=== PATIENT | female | born 1985 | race African-American/Black ===

== ENCOUNTER 2024-04-07 09:44 | Emergency (ER) | payer OTHER, SELFPAY ==
--- NOTE | ~2024-04-07 | XR_ITS ---
XR knee LT 3V DATE: 04/07/2024 10:32 INDICATION: Injury. Anterior left knee pain. TECHNIQUE: [place], AP and lateral views COMPARISON: None FINDINGS: Mild suprapatellar knee joint effusion is suggested. Bilateral bipartite patella. There is mild periarticular spurring at the patellofemoral, medial and lateral compartments. Medial a nd lateral compartment joint spaces are relatively preserved. No fracture or dislocation, periosteal reaction or bone destruction or radiopaque intra-articular loo se body or chondrocalcinosis is noted.. IMPRESSION: Suggestion of mild suprapatellar knee joint effusion Mild tricompartment osteoarthritis Reviewed, dictated and finalized at location B.
[2024-04-07 10:03] VITALS: BP 152/110; PULSE 122; RESP 20; TEMP 36.8; O2SAT 98
[2024-04-07] MEDS: oxyCODONE/ACETAMINOPHEN (*CRX) 5-325 MG TABLET 1 TABLET PO (10:19)
--- NOTE | 2024-04-07 10:46 | ED_ITS ---
HPI - Extremity Injury (Lower) General Chief Complaint: Extremity Injury, Lower Stated Complaint: knee pain Time Seen by Provider: 04/07/24 10:14 History of Present Illness HPI Narrative: Patient presents with knee injury yesterday, she missed a step and landed hard, and now has pain to her knee. She is able to walk but it does hurt. Has been using ibuprofen. Pain sometimes radiates down her leg and sometimes she will get some tingling down her leg. Related Data Allergies Allergy/AdvReac Type Severity Reaction Status Date / Time No Known Allergies Allergy Unknown Verified 04/07/24 10:17 Review of Systems Review of Systems: All systems reviewed & are unremarkable except as noted in HPI and below Exam Narrative: EXAMINATION OF ORGAN SYSTEMS/BODY AREAS: Constitutional: Vital signs per nursing GENERAL: Appears uncomfortable HEAD: Normal with no signs of head trauma. EYES: EOMI, conjunctiva normal ENT: Hearing grossly intact LUNGS: Nonlabored breathing. HEART: Tachycardic, normal DP and popliteal pulse left lower leg ABD: [Soft], [nontender to palpation] EXT: Normal range of motion with tenderness to the anterior knee SKIN: [No rashes or lesions.] NEURO: [Alert and oriented x 3. No gross focal sensory or strength deficits.] PSYCH: Normal affect Course Vital Signs Vital signs: Vital Signs Temperature 98.3 F 04/07/24 10:03 Pulse Rate 122 H 04/07/24 10:03 Respiratory Rate 04/07/24 10:03 Blood Pressure 152/110 H 04/07/24 10:03 Pulse Oximetry 98 04/07/24 10:03 Oxygen Delivery Room Air 04/07/24 10:03 Temperature 98.3 F 04/07/24 10:03 Pulse Rate 122 H 04/07/24 10:03 Respiratory Rate 04/07/24 10:03 Blood Pressure 152/110 H 04/07/24 10:03 Pulse Oximetry 98 04/07/24 10:03 Oxygen Delivery Room Air 04/07/24 10:03 MDM - Extremity Injury (Lower) MDM Narrative Medical decision making narrative: Patient presents with left knee injury, she is neurovascularly intact, no obvious deformity, she is tender to palpation, x-ray obtained thankfully only shows an effusion without any obvious fracture on my independent interpretation, she is given pain medication, Shaw wrap, ice, crutches, and at time of discharge her heart rate had improved to 100. I do feel she is stable for discharge at this time with precautions orthopedic follow-up. Discharge Plan Discharge Clinical Impression: Knee sprain Patient Disposition: Home, Self-Care Condition: Stable Instructions: Antibiotic Form, Knee Sprain (ED) Additional Instructions: Please follow-up with the Orthopedic, your knee may need further imaging such as MRI; you can come back for any further issues. Continue using ice, Motrin and Tylenol for pain. Follow-up/Referrals: Flip Donis MD [Physician] - 2 Days PHYSICIAN,DIRECTOR BROADCAST [Primary Care Provider] -
[2024-04-07 11:01] VITALS: BP 132/100; PULSE 98; RESP 18; O2SAT 100
[2024-04-07 11:03] VITALS: BP 132/100; PULSE 97; RESP 17; O2SAT 100
== END 2024-04-07 11:06 | disposition home or self-care (01) ==
PROVIDERS: Emergency Provider Emergency Medicine
DX: S83.92XA Sprain of unspecified site of left knee, initial encounter (principal); W10.9XXA Fall (on) (from) unspecified stairs and steps, initial encounter
CPT/HCPCS: 73562; 99283; A9270

== ENCOUNTER 2024-04-30 10:14 | Outpatient (CLI) | payer OTHER, SELFPAY ==
--- NOTE | ~2024-04-30 | MR_ITS ---
MRI of the left knee Clinical history: Injury Technique: Coronal proton density and proton density-weighted images, sagittal proton-density and T2 fat-sat images, and axial proton-density fat-saturated images were acquired. Findings: Probable severe mucoid degenerative change of the ACL which is markedly hyperintense and am orphous, though suspected to be intact. Posterior cruciate ligament is intact. Medial collateral liga ment and the lateral collateral ligament complex are intact. Popliteus tendon is intact. No lateral meniscal tear seen. There is probably a free edge tear of the body segment of the medial m eniscus. There is diffuse grade IV chondromalacia of the patellar apex and lateral patellar facet. Femoral tro chlear cartilage is intact. Lateral compartment cartilage is relatively well-preserved. There is patc hy mild to moderate chondral malacia the medial compartment. There is probable mild bone contusion ve rsus reactive marrow edema at the posterolateral tibial plateau region. There is additional mild cont usion or reactive marrow edema at the posterior medial tibial plateau. Extensor mechanism is intact. Moderate joint effusion present. No Benz's cyst. Impression: Probable bone contusions at the posterior aspect of the medial and lateral tibial plateau. Mild to moderate tricompartmental degenerative change, worst in the patellofemoral compartment, as de tailed above. Probable free edge tear of the body segment of the medial meniscus. 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 Moderate joint effusion. Reviewed, dictated and finalized at [facility]. Impression: Probable bone contusions at the posterior aspect of the medial and lateral tibi al plateau. Mild to moderate tricompartmental degenerative change, worst in the patellofemo ral compartment, as detailed above. Probable free edge tear of the body segment of the medial meniscus. 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 Moderate joint effusion.
== END 2024-04-30 10:15 ==
PROVIDERS: PCP Orthopaedic Surgery; Visit Provider Orthopaedic Surgery
DX: S89.92XA Unspecified injury of left lower leg, initial encounter (principal); X58.XXXA Exposure to other specified factors, initial encounter; M25.462 Effusion, left knee
CPT/HCPCS: 73721

== ENCOUNTER 2024-09-16 02:27 | Day surgery (SDC) | payer OTHER, SELFPAY ==
--- NOTE | 2024-09-08 13:49 | SUR.PREOP ---
Report to the Outpatient Waiting Room, entrance under the green pavilion located off [facility], at time _1130_ on date _09/16/24_. Planned Procedure Time: _1330_.? Time changes happen often and if your time is changed the preop area will call you the afternoon before. - You and your visitor will be asked to self-screen and do not enter if you have any COVID symptoms. Please call surgeon if you need to reschedule. - A mask is optional within the hospital at this time. Patients may have clear liquids (water, carbonated beverages, clear teas, apple juice) until 3 hours prior to surgery with a maximum of 20 ounces. - No food from midnight until time of surgery and no smoking - Infants may have breast milk until 4 hours before surgery, infant formula 6 hours prior to surgery. - Children will be allowed to drink immediately following surgery.? If applicable, please bring a bottle or sippy cup to assist with drinking. Juice, water, soda, and popsicles are readily available.? For infants on formula, please bring formula the day of surgery.? Pacifiers are allowed. Take only the following medications with a SIP of water on the morning of surgery: _N/A_ DO NOT STOP ANY OF YOUR OTHER PRESCRIPTION MEDICATIONS PRIOR TO SURGERY EXCEPT THE FOLLOWING Medications to discontinue per physician _NSAIDs per Dr Donis_ Date to take last dose__Per Dr. Donis__ Please no make-up, nail croatian, hairspray, perfume, deodorant, or body powder the day of surgery.? No jewelry (including any body piercings) or valuables the day of surgery, leave them at home.? Please take a shower or bath the night before, or the morning of, surgery with an antibacterial soap.? Wear comfortable, loose fitting clothing.? Children are encouraged to wear pajamas. - Jewelry must be removed prior to entering the operating room.? Rings and piercings that are not removed may be cut off. - The hospital will not accept responsibility for valuables.? - Please leave all valuables, including medications, at home the day of surgery. If you are going home after surgery, a licensed flatbed driver must drive you home.? - NO public transportation without another adult if you receive anesthesia. - We recommend that an adult stay with you for 24 hours following discharge. - We also recommend that you do not drive, make important decision, drink alcoholic beverages, or take any drugs that were not prescribed by your health care provider for at least 24 hours after your discharge time. For Pediatric surgeries, we recommend two adults accompany the child home. Follow any additional instructions given to you from your surgeon. Telephone instructions given to _Angellay_and asked if any additional questions and then verbalized understanding. Patient advised to call surgeon office or pre surgery nurse liaison [phone] if any additional questions.
[2024-09-08 14:03] VITALS: BMI 46.9
--- NOTE | 2024-09-16 07:29 | WPDHPUPDATE1 ---
History and Physical Update Update Date/Time: 09/16/24 07:29 History and Physical has been reviewed, including an updated exam of the patient. There are NO changes in the patient's condition. Risks, benefits, and alternatives have been discussed and questions answered. Patient agrees to proceed with procedure.
[2024-09-16 11:32] LABS: BEDSIDEPREGUCG Negative (Negative)
[2024-09-16 11:40] VITALS: BP 179/106; PULSE 98; RESP 16; TEMP 36.8; O2SAT 100
[2024-09-16] MEDS: ACETAMINOPHEN 500 MG TABLET 1000 MG PO (11:50)
[2024-09-16] MEDS: CELECOXIB 200 MG CAPSULE PO (11:51)
[2024-09-16 11:52] VITALS: BMI 64.6
[2024-09-16] MEDS: LACTATED RINGERS 1,000 ML 30 ML IV CONT (12:00)
[2024-09-16 12:10] VITALS: BP 216/103
== END 2024-09-16 12:54 | disposition home or self-care (01) ==
PROVIDERS: Anesthesiology; Visit Provider Orthopaedic Surgery
PROC: (CPT 29870; principal; 2024-09-16 13:30)
DX: S83.242A Other tear of medial meniscus, current injury, left knee, initial encounter (principal); I10 Essential (primary) hypertension; X58.XXXA Exposure to other specified factors, initial encounter; Z53.8 Procedure and treatment not carried out for other reasons
CPT/HCPCS: 99213; A9270; G0463; J0690; J7120